=== PATIENT | male | born 1960 | race Caucasian/White ===

== ENCOUNTER 2016-10-31 13:02 | Day surgery (SDC) | payer MEDICARE ==
[~2016-10-31] VITALS: Ht 172.7 cm; Wt 115.0 kg
[2016-10-31 15:27] VITALS: BP 154/95; PULSE 71; TEMP 97.8
[2016-10-31] MEDS ORDERED: ASPIRIN E.C. 8181 MG PO (15:56)
[2016-10-31] MEDS ORDERED: RT ADVAIR 228 DISKUS IH (15:56)
[2016-10-31] MEDS ORDERED: HYGROTON 2525 MG/TAB PO (15:57)
[2016-10-31] MEDS ORDERED: FLEXERIL 1010 MG/TAB PO (15:58)
[2016-10-31] MEDS ORDERED: MASON NATURAL1200 MG PO (15:59)
[2016-10-31] MEDS ORDERED: AMARYL 2MG T2 MG/TAB PO (16:00)
[2016-10-31] MEDS ORDERED: PROZAC40 MG PO (16:00)
[2016-10-31] MEDS ORDERED: TRANDATE 200MG200 MG PO (16:01)
[2016-10-31] MEDS ORDERED: ZESTRIL40 MG PO (16:02)
[2016-10-31] MEDS ORDERED: GLUCOPHAGE1000 MG PO (16:03)
[2016-10-31] MEDS ORDERED: NORVASC 10MG10 MG PO (16:04)
[2016-10-31] MEDS ORDERED: NEURONTIN300 MG/CAP PO (16:04)
[2016-10-31] MEDS ORDERED: PROTONIX 40MG T40 MG PO (16:05)
[2016-10-31] MEDS ORDERED: PROAIR HFA0.09 MG/AC IH (16:06)
[2016-10-31] MEDS ORDERED: MIRAPEX0.5 MG PO (16:06)
[2016-10-31] MEDS ORDERED: ZOCOR 20MG20 MG PO (16:08)
[2016-10-31] MEDS ORDERED: DESYREL DIVIDO150 M1 PO (16:09)
[2016-10-31] MEDS ORDERED: NORCO 325 MG-51 TAB PO (16:11)
[2016-10-31] MEDS ORDERED: TRULICITY0.75 MG/0. SQ (16:11)
[2016-10-31 19:30] VITALS: BP 151/86; PULSE 74; TEMP 97.8
[2016-10-31 19:45] VITALS: BP 135/84; PULSE 76
[2016-10-31 20:00] VITALS: BP 134/83; PULSE 80
[2016-10-31 20:15] VITALS: BP 133/81; PULSE 78
== END 2016-10-31 21:30 | disposition home or self-care (01) ==
LOC: SDCO 13:02 → SURG 19:08 → SDCO 19:15
DX: N13.2 Hydronephrosis with renal and ureteral calculous obstruction (principal); N28.1 Cyst of kidney, acquired; Z87.442 Personal history of urinary calculi; I12.9 Hypertensive chronic kidney disease with stage 1 through stage 4 chronic kidney disease, or unspecified chronic kidney disease; E11.22 Type 2 diabetes mellitus with diabetic chronic kidney disease; N18.3 Chronic kidney disease, stage 3 (moderate); Z86.14 Personal history of Methicillin resistant Staphylococcus aureus infection; E66.9 Obesity, unspecified; J45.909 Unspecified asthma, uncomplicated; Z79.84 Long term (current) use of oral hypoglycemic drugs; G47.33 Obstructive sleep apnea (adult) (pediatric); K21.9 Gastro-esophageal reflux disease without esophagitis; F41.9 Anxiety disorder, unspecified; F32.9 Major depressive disorder, single episode, unspecified; E11.40 Type 2 diabetes mellitus with diabetic neuropathy, unspecified; E78.5 Hyperlipidemia, unspecified
CPT/HCPCS: OP; C1769; C2617; J0360; J0690; J1100; J2405; J2704; J3010; J7030; Q9967

== ENCOUNTER 2016-11-23 13:59 | Day surgery (SDC) | payer MEDICARE ==
[2016-11-23] VITALS (10 sets, daily range): BP systolic 20–127; BP diastolic 65–78; PULSE 75–85; TEMP 97.6–98
[~2016-11-23] VITALS: Ht 172.7 cm; Wt 104.1 kg
[~2016-11-23 13:59] MED LIST: AMARYL 2MG T2 MG/TAB PO; ASPIRIN E.C. 8181 MG PO; DESYREL DIVIDO150 M1 PO; FLEXERIL 1010 MG/TAB PO; GLUCOPHAGE1000 MG PO; HYGROTON 2525 MG/TAB PO; MASON NATURAL1200 MG PO; MIRAPEX0.5 MG PO; NEURONTIN300 MG/CAP PO; NORCO 325 MG-51 TAB PO; NORVASC 10MG10 MG PO; PROAIR HFA0.09 MG/AC IH; PROTONIX 40MG T40 MG PO; PROZAC40 MG PO; RT ADVAIR 228 DISKUS IH; TRANDATE 200MG200 MG PO; TRULICITY0.75 MG/0. SQ; ZESTRIL40 MG PO; ZOCOR 20MG20 MG PO
[2016-11-23] MEDS ORDERED: BENADRYL25 M2 PO (14:43)
[2016-11-24 01:34] VITALS: BP 110/67; PULSE 86; TEMP 98.1
[2016-11-24 05:26] VITALS: BP 112/68; PULSE 80; TEMP 98
[2016-11-27] MEDS ORDERED: K-TAB10 PO (20:34)
[2016-11-27] MEDS ORDERED: CIPRO 500MG TA500 MG PO (20:35)
== END 2016-11-24 09:15 | disposition home or self-care (01) ==
LOC: SDCO 13:59 → SURG 14:01 → SDCO 11-24 09:15
DX: R10.9 Unspecified abdominal pain (principal); Z87.442 Personal history of urinary calculi; E11.22 Type 2 diabetes mellitus with diabetic chronic kidney disease; E11.42 Type 2 diabetes mellitus with diabetic polyneuropathy; I12.9 Hypertensive chronic kidney disease with stage 1 through stage 4 chronic kidney disease, or unspecified chronic kidney disease; N18.9 Chronic kidney disease, unspecified; E78.5 Hyperlipidemia, unspecified; E66.9 Obesity, unspecified; Z90.49 Acquired absence of other specified parts of digestive tract; J45.909 Unspecified asthma, uncomplicated; E78.00 Pure hypercholesterolemia, unspecified; G47.33 Obstructive sleep apnea (adult) (pediatric); F32.9 Major depressive disorder, single episode, unspecified; F41.9 Anxiety disorder, unspecified
CPT/HCPCS: OP; A9284; C1769; C2617; J0330; J0690; J1100; J2270; J2405; J2704; J2710; J2765; J3010; J7030; Q9967